=== PATIENT | male | born 1990 | race Caucasian/White ===

== ENCOUNTER 2016-09-15 17:46 | Emergency (ER) | payer OTHER ==
[~2016-09-15] VITALS: Ht 180.3 cm; Wt 88.6 kg
[2016-09-15 17:53] VITALS: BP 142/100; PULSE 82; RESP 18; O2SAT 98
--- NOTE | 2016-09-15 18:33 | ED.REPORT ---
HPI-Facial Injury Date of Service Sep 15, 2016 ED Provider: Harsha Jeronimo PA-C TJ is an otherwise healthy 26-year-old male presenting with chief complaint of a facial laceration. Patient reports unloading a sport utility vehicle from [employer] when a prybar kicked back and struck him in the cheek. Patient admits pain in the jaw and a 1/10 headache. Denies tooth trauma. Denies losing consciousness, bleeding/clotting disorders, use of blood thinners, vomiting, seizure. Denies pain in the neck, recent use of drugs/alcohol, numbness/ tingling in his limbs. He is unsure of his tetanus status. Nursing Notes Stated Complaint: FACIAL LAC Chief Complaint: Head, Face, Neck Trauma Nursing Notes Reviewed: Yes Allergies: Coded Allergies: No Known Allergies (Unverified , 09/15/16) Scheduled Cephalexin (Cephalexin) 500 Mg Tablet 500 MG PO QID General Time Seen by Provider: 20:00 Chief Complaint Laceration Past Medical History Past Medical History Denies Review of Systems Review of Systems Note: Negative unless stated otherwise in history of present illness Physical Exam General: Well appearing, well developed, well nourished, no acute distress. Left hand: Small laceration on the ulnar aspect of the distal phalanx. Head: Laceration on right cheek approximately 3 cm, some bubbling with speech. Otherwise atraumatic. No mastoid tenderness. Eyes: No scleral icterus or injection. No discharge. PERRL. Vision grossly intact. Ears: Pinna and tragus nontender with manipulation. External auditory canal patent, atraumatic and without discharge. Tympanic membrane marshall, shiny and translucent without fluid, bulging, retraction or perforation. Hearing grossly intact. Nose: Slightly deflected to the right with no signs of trauma. Patient states this is baseline. nares patent without discharge. No frontal or maxillary sinus tenderness. Mouth/pharynx: Examination is somewhat limited as patient is unable to open his mouth more than about 2 fingers. No dental trauma is noted. Bite test with a tongue blade is normal bilaterally. Neck: No tenderness or lymphadenopathy. Trachea midline. Respiratory: No respiratory distress, no increased work of breathing. Speaks in complete sentences. Skin: Warm and dry. Neurological: Grossly nonfocal. Cranial nerves: Vision grossly intact, PERRL, EOMI. Facial motion symmetrical, sensation to light touch over forehead, maxilla and mandible present and equal B /L. Voice clear and fluent, no drooling/pooling of saliva, uvula rises midline. Psychological: alert and oriented. Speech appropriate, linear and logical. Behavior appropriate. Initial Vital Signs Vital Signs (First) Date Time Temp Pulse Resp B/P Pulse Ox O2 Delivery O2 Flow Rate FiO2 09/15/16 17:53 36.8 82 18 142/100 98 Room Air Elevated blood pressure Interpretation & Diagnostics Interpretation & Diagnostics: PROCEDURE: CT FACE WITHOUT CONTRAST ([id number]) INDICATIONS: pain, trauma IMPRESSION: No definitive acute fracture. Mild diastases and deformity of the nasal bones are present. However, there is no overlying soft tissue edema. Appearance could be related to prior trauma and clinical correlation for pain is recommended. Procedures Laceration Management Laceration Management: Complex laceration through the right cheek, closed with 4 absorbable 4-0 chromic gut sutures in the mucosa, irrigated externally with 250 ML's of sterile saline, sutured with 4 4-0 chromic gut sutures in the subcutaneous layer and 7 fast absorbing gut sutures and the skin. Location of Wound: Right cheek Wound Length: 5 cm Local Anesthesia: Lidocaine w epi 1% Wound Preparation: Shurclens, Normal saline Irrigation: Copious Repair Skin: ___ O (6-0 fast absorbing gut) # Sutures - Skin: 7 Repair Subcutaneous: ___ O, Chromic (4-0) # Sutures - SubQ: 4 Closure Layers: 3 (mucosa, subcutaneous, skin) Suture Technique: Simple Post-Procedure / Complications: Antibiotic oint applied, Dressing applied, No complications, Condition improved, Tolerated procedure well, Patient stable Re-Eval/Medical Decision Med Decision/Clinical Course This is a otherwise healthy 26-year-old male was struck in the face with a lever that kicked back on a car [place]. Denies loss consciousness, severe headache, vomiting, seizure, neck pain, numbness/weakness in the limbs. Complains of a laceration to his right cheek. Physical examination reveals a 5 cm laceration to his right cheek penetrates into the oral cavity. No dental trauma. Neck is nontender, good range of motion. Neurological examination is normal, cranial nerves intact. CT of the face reveals no fractures. I informed patient that I had not close the wound like this before and I offered to page an ENT physician to perform the closure, patient declined, consenting for me to perform the procedure. Patient is quite anxious about having his laceration treated and requires Versed prior to the procedure. The wound is closed in 3 layers with absorbable sutures, including in the skin at the patient's request, per the procedure note above, without complication. Laceration on his finger requires no treatment and is dressed with antibiotic and gauze. Advised regarding wound care, provided follow-up referral. Provided take-home pack of Percocet and advised regarding [id number] analgesia. Provided emergency return precautions. Patient verbalized understanding of and consented to the plan. Discharge & Departure Impression: Primary Impression: Facial laceration Encounter type: initial encounter Qualified Code: S01.81XA - Laceration without foreign body of other part of head, initial encounter Additional Impression: Elevated blood pressure reading Disposition: Home Discharge Condition All VS Reviewed: Yes Condition: Stable Patient Instructions: Facial Laceration (ED) Additional Instructions: Evaluation in the emergency department for a laceration includes interview, physical examination and CT scan of your face. These are all reassuring and she did have a fractured her face. However he did have a laceration to cheek and this wound penetrates through your cheek, into your mouth. Because there are a lot of bacteria in your mouth I believe it is reasonable to put on antibiotics. I gave you a prescription for Keflex 500 mg to be taken 4 times a day for 7 days. We have updated your tetanus shot. You have been treated with Midazolam, morphine and oxycodone in the emergency department today. We have cleaned, sutured and dressed the wound with antibiotic ointment and gauze. Please leave this dressing on and dry for the next 24 hours. After that you can remove the dressing, clean with soap and water and then reapply antibiotic ointment and gauze or Band-Aid. Please do not submerge the wound as in washing dishes, swimming or soaking in a tub until you have the sutures removed. The pain is best treated with 600 mg of ibuprofen (Advil, Motrin) every 6 hours , or 1000 mg of acetaminophen (Tylenol) every 6 hours. These drugs can be taken at the same time for more severe pain. I will send you home with a small amount of oxycodone/acetaminophen 5/325 mg which can be SUBSTITUTED for the Tylenol to treat more severe pain. Do not take them together, and do not drink alcohol or operate a vehicle within 4 hours of taking this medication. Be vigilant for signs of infection. While a small amount of redness, tenderness and clear or pink drainage is normal, any increasing pain, redness, swelling or the appearance of pus suggests infection. More severe infection as suggested by symptoms such as fever, chills, feeling ill, racing heart. Please return to emergency Department if you notice signs of infection. The sutures should dissolve over the next 2 weeks. After about a week they should start to fall out. If there are any remaining in 2 weeks you should have them removed I will also give you a referral for primary care provider if you have any further concerns or wish to establish care. Text / Dict Instructions: I also note that your blood pressure was elevated during your visit to the emergency department. Please discuss this with your primary care provider. Referrals: [facility] EDSupervising Provider for APC: Yobany De Los Santos MD copies to: [facility] Harsha Jeronimo PA-C Sep 15, 2016 18:33
--- NOTE | 2016-09-15 18:44 | DRSVH ---
PROCEDURE: CT FACE WITHOUT CONTRAST ([id number]) INDICATIONS: pain, trauma TECHNIQUE: Noncontrast 1.5 mm thick axial images acquired from the mandible through the frontal sinuses, with co leonie and sagittal reformatting. For radiation dose reduction, the following was used: automated ex posure control. COMPARISON: None. FINDINGS: Image quality: Excellent. Bones and teeth: Orbital tamez are intact. Sinus tamez show no fracture or deformity. Nasal bones demonstrate diastases along the anterior aspect and slight deformity on the wound. However, no overl jaquan soft tissue edema Visualized portions of the mandible demonstrate no fractures or subluxation. Zygomatic arches are intact. Pterygoid plates are intact. Visualized portions of the skull base and auditory canals are intact. Sinuses: Paranasal sinuses are aerated, without fluid levels, mucosal thickening, or mucoceles. Mas toid air cells are aerated. Soft tissues: No edema, masses, or fluid collections. No enlarged lymph nodes. No soft tissue lace rations or debris. Vascular: Visualized vascular structures appear normal in the absence of contrast. Bony vascular fo ramina and canals are intact. IMPRESSION: No definitive acute fracture. Mild diastases and deformity of the nasal bones are presen t. However, there is no overlying soft tissue edema. Appearance could be related to prior trauma an d clinical correlation for pain is recommended. Dictated by: Megan Garcia M.D. on 09/15/2016 at 18:39 Approved by: Megan Garcia M.D. on 09/15/2016 at 18:43
[2016-09-15] MEDS: oxyCODONE-Acetamin 5-325 mg Tablet PO ONE ×2 (20:35→21:05)
[2016-09-15] MEDS ORDERED: Lidocaine-Epi-Tetracaine Solution 3 mL Syringe TOPICAL ONE (21:15)
[2016-09-15] MEDS ORDERED: CEPH500T PO (22:46)
[2016-09-15] MEDS ORDERED: TdaP Vaccine 0.5 mL Inj IM ONE (22:50)
[2016-09-15] MEDS ORDERED: _oxyCODONE/APAP 5-325 mg Tablet PO PRN (22:50)
[2016-09-15 23:30] VITALS: BP 131/78; PULSE 71; RESP 18; O2SAT 97
== END 2016-09-15 23:33 | disposition home or self-care (01) ==
LOC: SED 17:46 → EDBD 17:46 → SED 23:33
DX: S01.411A Laceration without foreign body of right cheek and temporomandibular area, initial encounter (principal); R03.0 Elevated blood-pressure reading, without diagnosis of hypertension; W22.8XXA Striking against or struck by other objects, initial encounter; Y93.89 Activity, other specified; Y92.9 Unspecified place or not applicable; Y99.8 Other external cause status; Z23 Encounter for immunization
CPT/HCPCS: 12052; 70486; 90471; 90715; 96374; 96375; 96376; 99284; J2250; J2270